=== PATIENT | female | born 1975 | race Two or more races ===

== ENCOUNTER 2019-04-19 11:45 | Emergency (ER) | payer OTHER ==
[~2019-04-19] VITALS: Ht 165.1 cm; Wt 70.8 kg
[2019-04-19] MEDS ORDERED: NORVASC10 MG (12:11)
[2019-04-19] MEDS ORDERED: ZESTRIL10 M1 (12:11)
== END 2019-04-19 14:59 | disposition home or self-care (01) ==
LOC: ER 11:45
DX: H10.13 Acute atopic conjunctivitis, bilateral (principal); R51 Headache

== ENCOUNTER 2025-04-09 15:12 | Emergency (ER) | payer OTHER ==
[~2025-04-09] VITALS: Ht 165.1 cm; Wt 84.4 kg
[~2025-04-09 15:12] MED LIST: NORVASC10 MG; ZESTRIL10 M1
[2025-04-09] MEDS ORDERED: LEVOTHYROXINE25 MCG PO (15:40)
[2025-04-09] MEDS ORDERED: RINGERS SOLUTION,LACTATED 1,000 ML IV STA (15:56)
[2025-04-09] MEDS ORDERED: LACTOBACILLUS ACIDOPHILUS 1 CAP CAP PO STA (15:57)
[2025-04-09] MEDS ORDERED: FAMOTIDINE/PF 20 MG/2 ML VIAL IV PUSH STA (15:57)
[2025-04-09] MEDS ORDERED: HYOSCYAMINE SULFATE 0.125 MG TAB.SUBL SL STA (15:57)
[2025-04-09 16:33] LABS: BASO % 0.6 % (0.1-1.2); EOS # 0.05 (0.04-0.54); EOS % 0.6 % (0.7-7.0); LYMPH # 2.13 (1.18-3.74); LYMPH % 25.4 % (19.3-53.1); MEAN PLATELET VOLUME 10.10 fl (9.4-12.4); MONO # 0.57 (0.24-0.82); MONO % 6.8 % (4.7-12.5); NEUT # 5.57 (1.56-6.13); NEUT % 66.4 % (34.0-71.1); RED CELL DISTRIBUTION WIDTH 14.8 % (11.6-14.4)
[2025-04-09 17:02] LABS: ALT/SGPT 40.0 U/L (12-78); AST/SGOT 22.0 U/L (15-37); BILIRUBIN TOTAL 0.54 mg/dL (0.3-1.2); BUN CREA RATIO 11.0 (7.0-25.0); CREATININE SERUM 0.73 mg/dL (0.55-1.02); GFR 84.73; GLOBULINA 3.9 G/DL (2.4-3.5); GLUCOSE FASTING 82.0 mg/dL (65-100); OSMOLALITY SERUM 281.0 MOSM/KG (275-295)
[2025-04-09 17:03] LABS: URINE APPEARANCE Clear; URINE BILIRRUBIN Negative (NEGATIVE); URINE BLOOD Negative; URINE COLOR Yellow; URINE GLUCOSE Negative (NEGATIVE); URINE KETONE Negative (NEGATIVE); URINE LEUKOCYTE Negative; URINE NITRATE Negative; URINE PROTEIN Negative (NEGATIVE); URINE UROBILINOGEN 0.2 E.U./dl
[2025-04-09 17:08] LABS: URINE BACTERIA 279.5 uL (0.0-1933); URINE EPITHELIAL CELLS 22.6 uL (0.0-38.8); URINE RBC 21.2 uL (0.0-20.8); URINE WBC 4.9 uL (0.0-23.2)
[2025-04-09 18:22] LABS: URINE CAST 0.14 uL (0.0-1.40)
== END 2025-04-09 19:31 | disposition home or self-care (01) ==
LOC: ER 15:12
PROVIDERS: General Practice
DX: R10.9 Unspecified abdominal pain (principal); Z88.8 Allergy status to other drugs, medicaments and biological substances; R10.83 Colic